=== PATIENT | male | born 1975 | race Two or more races ===

== ENCOUNTER 2025-01-02 17:05 | Inpatient (IN) | payer BC, OTHER ==
[~2025-01-02] VITALS: Ht 185.4 cm; Wt 133.0 kg
--- NOTE | 2025-01-02 17:25 | ED.PDOC ---
HPI Comments 49 y/o M, BIBA with PMHX of HTN presents to the ED for CC of chest pain. EMS states, patient is coming from PCP office where he was being seen for left arm numbness that radiates to his left shoulder. EMS relays, PCP did an EKG which showed stemi; elevation in leads V3 and V4. Patient was given 324 of Aspirin in route to ED an all VSS. Patient denies chest pain, shortness of breath, or N/V/D. No other symptoms or modifying factors at this time. Chief Complaint: Chest Pain Time Seen by MD: 17:00 Reviewed Notes: Nurses Notes, City Distribution Clerk Notes, Medications, Allergies Allergies: Coded Allergies: NO KNOWN ALLERGIES (Unverified , 01/02/25) Information Source: Patient, Emergency Med Personnel Mode of Arrival: EMS Severity: Moderate Timing: Minutes Duration: Since onset Prehospital treatment: 12 Lead EKG Onset: At Rest Cardiac Risk Factors: HTN PE Risk Factors: None History of: None Modifying Factors: Nothing Associated Signs and Symptoms: None Past Medical History PAST MEDICAL HISTORY: HTN Surgical History: Denies all surgeries Family History Family History: Unknown Social History Smoker: Non-Smoker Alcohol: Denies ETOH Use Drugs: Denies Drug Use Lives In: Home Constitutional: denies: chills, diaphoresis, fatigue, fever, malaise, sweats, weakness, others EENTM: denies: blurred vision, double vision, ear bleeding, ear discharge, ear drainage, ear pain, ear ringing, eye pain, eye redness, hearing loss, mouth pain, mouth swelling, nasal discharge, nose bleeding, nose congestion, nose pain, photophobia, tearing, throat pain, throat swelling, voice changes, others Respiratory: denies: cough, hemoptysis, orthopnea, SOB at rest, shortness of breath, SOB with excertion, stridor, wheezing, others Cardiovascular: reports: left arm pain; denies: chest pain, dizzy spells, diaphoresis, Dyspnea on exertion, edema, irregular heart beat, lightheadedness, palpitations, PND, syncope, others Gastrointestinal: denies: abdomen distended, abdominal pain, blood streaked bowels, constipated, diarrhea, dysphagia, difficulty swallowing, hematemesis, melena, nausea, poor appetite, poor fluid intake, rectal bleeding, rectal pain, vomiting, others Genitourinary: denies: burning, dysuria, flank pain, frequency, hematuria, inc ontinence, penile discharge, penile sore, pain, testicle pain, testicle swelling, urgency, others Neurological: denies: dizziness, fainting, headache, left sided numbness, left sided weakness, numbness, paresthesia, pre-existing deficit, right sided numbness, right sided weakness, seizure, speech problems, tingling, tremors, weakness, others Musculoskeletal: denies: back pain, gout, joint pain, joint swelling, muscle pain, muscle stiffness, neck pain, others Integumetry: denies: bruises, change in color, change in hair/nails, dryness, laceration, lesions, lumps, rash, wounds, others Allergic/Immunocompromised: denies: Difficulty Healing, Frequent Infections, Hives, Itching, others Hematologic/Lymphatic: denies: anemia, blood clots, easy bleeding, easy bruising, swollen glands, others Endocrine: denies: excessive hunger, excessive sweating, excessive thirst, excessive urination, flushing, intolerance to cold, intolerance to heat, unexplained weight gain, unexplained weight loss, others Psychiatric: denies: anxiety, bipolar disorder, depression, hopeless, panic disorder, schizophrenia, sleepless, suicidal, others All Other Systems: Reviewed and Negative Physical Exam General Appearance: Moderate Distress HEENT: Normal ENT Inspection, Pharynx Normal, TMs Normal Neck: Full Range of Motion, Non-Tender, Normal, Normal Inspection Respiratory: Chest Non-Tender, Lungs Clear, No Accessory Muscle Use, No Respiratory Distress, Normal Breath Sounds Cardiovascular: No Edema, No JVD, No Murmur, No Gallop, Normal Peripheral Pulses, Regular Rate/Rhythm Breast Exam: Deferred Gastrointestinal: No Organomegaly, Non Tender, No Pulsatile Mass, Normal Bowel Sounds, Soft Genitalia: Deferred Pelvic: Deferred Rectal: Deferred Extremities: No calf tenderness, Normal capillary refill, Normal inspection, Normal range of motion, Non-tender, No pedal edema Musculoskeletal : Apperance: Normal Neurologic: Alert, sap bw architect II-XII nml as Tested, Motor Weakness, Normal Affect, Normal Mood, No Sensory Deficits Cerebellar Function: Normal Reflexes: Normal Skin: Dry, Normal Color, Warm Lymphatic: No Adenopathy EKG EKG : Pulse Rate (adult): 61 [place]: Normal Cardiac Rhythm: NSR Block: LBBB Hypertrophy: LAE Was a procedure done? Was a procedure done?: No CP Differential Dx Differential Diagnosis: Angina, MS, Pulmonary Embolus Differential Diagnosis: CHF Differential Diagnosis: Pericarditis X-Ray, Labs, Meds, VS Vital Signs Date Time Temp Pulse Resp B/P (MAP) Pulse Ox O2 Delivery O2 Flow Rate FiO2 01/02/25 18:27 112/37 01/02/25 18:10 61 01/02/25 17:40 Room Air* 0 21 01/02/25 17:09 66 01/02/25 17:08 98.1 92 18 134/82 (99) 99 Lab Test 01/02/25 17:21 Range/Units White Blood Count 4.1 L 4.4-10.8 10^3/uL Red Blood Count 5.36 4.5-5.90 10^6/uL Hemoglobin 14.9 13.5-17.5 g/dL Hematocrit 46.2 41.0-53.0 % Mean Corpuscular Volume 86.2 80.0-100.0 fL Mean Corpuscular Hemoglobin 27.8 L 28.0-32.0 pg Mean Corpuscular Hemoglobin Concent 32.3 32.0-36.0 g/dL Red Cell Distribution Width 14.7 H 11.8-14.3 % Platelet Count 223 140-450 10^3/uL Mean Platelet Volume 8.4 6.9-10.8 fL Neutrophils (%) (Auto) 42.1 37.0-80.0 % Lymphocytes (%) (Auto) 44.1 10.0-50.0 % Monocytes (%) (Auto) 11.6 0.0-12.0 % Eosinophils (%) (Auto) 1.6 0.0-7.0 % Basophils (%) (Auto) 0.6 0.0-2.0 % Neutrophils # (Auto) 1.7 1.6-8.6 10 ^3/uL Lymphocytes # (Auto) 1.8 0.4-5.4 10 ^3/uL Monocytes # (Auto) 0.5 0-1.3 10 ^3/uL Eosinophils # (Auto) 0.1 0-0.8 10 ^3/uL Basophils # (Auto) 0 0-0.2 10 ^3/uL Nucleated Red Blood Cells 0.2 % Prothrombin Time 11.1 9.3-11.8 sec Prothrombin Time INR 1.05 0.9-1.15 Activated Partial Thromboplast Time 25.5 24.5-34.5 SEC Sodium Level 141 136-145 mmol/L Potassium Level 4.2 3.5-5.1 mmol/L Chloride Level 104 98-107 mmol/L Carbon Dioxide Level 29 20-31 mmol/L Anion Gap 8 5-15 Blood Urea Nitrogen 10 9-23 mg/dL Creatinine 1.31 H 0.700-1.30 mg/dL Glomerular Filtration Rate Calc 67 >90 mL/min BUN/Creatinine Ratio 7.6 L 10.0-20.0 Serum Glucose 92 74-106 mg/dL Calcium Level 10.4 8.7-10.4 mg/dL Magnesium Level 2.1 1.6-2.6 mg/dL Total Bilirubin 0.6 0.2-1.0 mg/dL Aspartate Amino Transferase (AST) 16 13-40 U/L Alanine Aminotransferase (ALT) 32 7-40 U/L Alkaline Phosphatase 63 46-116 U/L Troponin I High Sensitivity 3 L </=54 ng/L B-Type Natriuretic Peptide 9.80 0-100 pg/mL Total Protein 7.2 5.7-8.2 g/dL Albumin 4.8 3.2-4.8 g/dL Current Medications Medications (Trade) Dose Ordered Sig/Tamar Route Start Time Stop Time Status Last Admin Nitroglycerin (Nitrodur 0.2MG/ Hr) 1 patch ONCE ONCE TD 01/02/25 17:30 01/02/25 17:31 DC 01/02/25 18:27 Sodium Chloride 500 ml @ 500 mls/hr Q1H ONCE IV 01/02/25 18:15 01/02/25 19:14 01/02/25 18:27 We spoke with [facility] and they gave us authorization to admit the patient is secondary to unstable for transfer The patient's CBC is within normal limits. We are giving the patient has some normal saline prior to placing nitroglycerin on the chest. IV Hep-Lock was established. We did send the EKG to Dr. Horta. He determined that this is not a STEMI but we are going to start the patient on nitroglycerin. The patient did receive aspirin prior to arrival. The patient was chemistry panel is within normal limits The 1st troponin level is negative The patient will be admitted at this time A cardiology consult has already been placed. Images Reviewed?: Images reviewed and evaluated by me Time of 1ST Reevaluation: 17:30 Reevaluation 1ST: Unchanged Patient Education/Counseling: Diagnosis, Treatment, Prognosis Family Education/Counseling: No Family Present Departure 1 Departure Time of Disposition: 18:46 Impression: Primary Impression: Acute myocardial ischemia Disposition: 09 ADMITTED INPATIENT Admit to: Tele Condition: Fair Critical Care Note Critical Care Time?: Yes (45 min-critical care time only) Stability Stability form required: Yes Unstable for transfer: Telemetry monitoring (Telemetry monitoring required), ED Physician Assesment (Clinical assesment) Heart Score Heart Score: Heart Score Response (Comments) Value History Moderate Suspicious 1 EKG Repolarization Disturb 1 Age 45-64 1 Risk Factors 1 or 2 risk factors 1 Troponin Normal limit 0 Total 4 I personally scribed for CLARISA GUIDO MD ([email or web address]) on 01/02/25 at 17:25. Electronically submitted by Beatriz Pink ([email or web address]). CLARISA GUIDO MD Jan 02, 2025 17:25
[2025-01-02] MEDS ORDERED: NITROGLYCERIN 50MG/250ML 250 ML IV ONE (17:30)
[2025-01-02 17:31] LABS: Basophils # (auto) 0 10 ^3/uL (0-0.2); Basophils % (auto) 0.6 % (0.0-2.0); Eosinophils # (auto) 0.1 10 ^3/uL (0-0.8); Eosinophils % (auto) 1.6 % (0.0-7.0); Hematocrit 46.2 % (41.0-53.0); Hemoglobin 14.9 g/dL (13.5-17.5); Lymphocytes # (auto) 1.8 10 ^3/uL (0.4-5.4); Lymphocytes % (auto) 44.1 % (10.0-50.0); Mean Corpuscular Hemoglobin 27.8 pg (28.0-32.0); Mean Corpuscular Hgb Conc. 32.3 g/dL (32.0-36.0); Mean Corpuscular Volume 86.2 fL (80.0-100.0); Monocytes # (auto) 0.5 10 ^3/uL (0-1.3); Monocytes % (auto) 11.6 % (0.0-12.0); Neutrophils # (auto) 1.7 10 ^3/uL (1.6-8.6); Neutrophils % (auto) 42.1 % (37.0-80.0); Nucleated Red Blood Cells % 0.2 %; Platelet Count (auto) 223 10^3/uL (140-450); Red Blood Cells 5.36 10^6/uL (4.5-5.90); Red Cell Distribution Width 14.7 % (11.8-14.3); White Blood Cell 4.1 10^3/uL (4.4-10.8)
[2025-01-02 17:45] LABS: Alanine Aminotransferase 32 U/L (7-40); Albumin 4.8 g/dL (3.2-4.8); Alkaline Phosphatase 63 U/L (46-116); Anion Gap 8 (5-15); Aspartate Aminotransferase 16 U/L (13-40); BUN/Creatinine Ratio 7.6 (10.0-20.0); Blood Urea Nitrogen 10 mg/dL (9-23); Carbon Dioxide 29 mmol/L (20-31); Chloride 104 mmol/L (98-107); Glucose 92 mg/dL (74-106); Magnesium 2.1 mg/dL (1.6-2.6); Potassium 4.2 mmol/L (3.5-5.1); Sodium 141 mmol/L (136-145); Total Protein 7.2 g/dL (5.7-8.2)
[2025-01-02 17:46] LABS: Bilirubin, Total 0.6 mg/dL (0.2-1.0); INR 1.05 (0.9-1.15); Partial Thromboplastin Time 25.5 SEC (24.5-34.5); Prothrombin Time 11.1 sec (9.3-11.8)
--- NOTE | 2025-01-02 18:12 | ECG ---
[facility] Test Date: 2025-01-02 Test Time: 18:10:47 Pat Name: ELY HARRIS Department: er Room: Gender: M Condenser Operator: jessica : 1975 Requested By: CLARISA GUIDO Order Number: [id number] Reading MD: Measurements Intervals [place] Rate: 61 P: 38 ND: 184 QRS: -76 QRSD: 147 T: 69 QT: 459 QTc: 463 Interpretive Statements Sinus rhythm Probable left atrial enlargement Left bundle branch block Please click the below link to view image of tracing.
[2025-01-02 18:16] LABS: Calcium 10.4 mg/dL (8.7-10.4)
[2025-01-02] MEDS: SODIUM CHLORIDE 0.9% 500 ML IV ONE (18:27)
[2025-01-02] MEDS: NITROGLYCERIN 0.2MG/HR TOPICAL PATCH TD ONE (18:27)
--- NOTE | 2025-01-02 18:41 | DVH ---
CHEST RADIOGRAPH Indication: CP Technique: Single frontal view of the chest was obtained COMPARISON: None FINDINGS: Lines and Tubes: None Lungs: Clear Pleura: No effusion. No pneumothorax. Cardiomediastinal contours: Unremarkable Bones: Unremarkable IMPRESSION: 1. No acute disease.
[2025-01-02] MEDS ORDERED: NITROGLYCERIN 0.4 MG SL TAB SL PRN (19:15)
[2025-01-02] MEDS ORDERED: ACETAMINOPHEN 325 MG TAB PO PRN (19:15)
[2025-01-02 19:34] VITALS: PULSE 59; RESP 18; O2SAT 95
[2025-01-02] MEDS: TOPIRAMATE 25 MG TAB PO SCH (22:26)
[2025-01-02] MEDS: ATORVASTATIN 20 MG TAB PO SCH (22:27)
[2025-01-02] MEDS: ONDANSETRON HCL 4 MG/2 ML VIAL IV PRN (22:29)
[2025-01-02] MEDS: MORPHINE SULFATE INJ 2 MG/ml SYRG IV PRN (22:29)
--- NOTE | 2025-01-02 22:59 | DVHHP2 ---
History of Present Illness Reason for Visit: Chest pain History of Present Illness 49-year-old male presents for evaluation of chest pain. Patient reports a three day history of left-sided sharp chest pain that was radiating to his left neck. He states developing left arm numbness as well. He was seen by his primary care provider who advised him to present to the emergency department for further evaluation of symptoms. Currently denies any nausea or vomiting. No chest pain. No other acute complaints reported at this time. Past Medical History Hypertension and obstructive sleep apnea Past Surgical History Denies Family History Noncontributory Smoke: No ALCOHOL: none Drugs: None Lives: with Family Review of Systems Review of Systems Review of systems are currently negative otherwise addressed in HPI. Allergies: Coded Allergies: NO KNOWN ALLERGIES (Unverified , 01/02/25) Medications Current Medications Medications Dose Ordered Sig/Tamar Route Start Time Stop Time Status Last Admin Dose Admin Aspirin 81 mg DAILY PO 01/03/25 10:00 Atorvastatin Calcium 20 mg HS PO 01/02/25 22:00 01/02/25 22:27 20 MG Telmisartan 80 mg HS PO 01/03/25 22:00 Topiramate 25 mg BID PO 01/02/25 22:00 01/02/25 22:26 25 MG Ondansetron HCl 4 mg Q4HP PRN IV 01/02/25 19:15 01/02/25 22:29 4 MG Acetaminophen 650 mg Q6HP PRN PO 01/02/25 19:15 Nitroglycerin 0.4 mg Q5MINP PRN SL 01/02/25 19:15 Morphine Sulfate 2 mg Q30M PRN IV 01/02/25 19:15 01/02/25 22:29 2 MG Exam Vital Signs Vital Signs Date Time Temp Pulse Resp B/P (MAP) Pulse Ox O2 Delivery O2 Flow Rate FiO2 01/02/25 22:29 64 11 126/83 01/02/25 19:34 95 Room Air* 0 21 01/02/25 19:34 97.6 97.6 Exam Gen: 49-year-old male in mild distress, obese Skin: Warm, dry, normal color and texture, no rash. HEENT: Normocephalic atraumatic, mucous membranes moist and pink. Neck: Cervical and supraclavicular nodes normal without enlargement, trachea is midline, thyroid gland is normal without masses. Pulmonary: Clear to auscultation and percussion bilaterally. Cardiac: Regular rate and rhythm. No murmur Abdomen: Soft, nontender, nondistended, bowel sounds present all 4 quadrants, no guarding, no rigidity, no organomegaly. Extremities: No cyanosis, clubbing, no edema Neuro: Cranial nerves II through XII grossly intact, normal affect and speech, no focal motor deficits. Labs/Xrays ORDERING PHYSICIAN: CLARISA GUIDO MD PROCEDURE(s): CXRP - CHEST PORTABLE REASON: CP ORDER NUMBER(s): [id number], ACCESSION NUMBER(s): [id number] CHEST RADIOGRAPH Indication: CP Technique: Single frontal view of the chest was obtained COMPARISON: None FINDINGS: Lines and Tubes: None Lungs: Clear Pleura: No effusion. No pneumothorax. Cardiomediastinal contours: Unremarkable Bones: Unremarkable IMPRESSION: 1. No acute disease. Labs Test 01/02/25 20:55 01/02/25 17:21 Range/Units Troponin I High Sensitivity 4 </=54 ng/L White Blood Count 4.1 L 4.4-10.8 10^3/uL Red Blood Count 5.36 4.5-5.90 10^6/uL Hemoglobin 14.9 13.5-17.5 g/dL Hematocrit 46.2 41.0-53.0 % Mean Corpuscular Volume 86.2 80.0-100.0 fL Mean Corpuscular Hemoglobin 27.8 L 28.0-32.0 pg Mean Corpuscular Hemoglobin Concent 32.3 32.0-36.0 g/dL Red Cell Distribution Width 14.7 H 11.8-14.3 % Platelet Count 223 140-450 10^3/uL Mean Platelet Volume 8.4 6.9-10.8 fL Neutrophils (%) (Auto) 42.1 37.0-80.0 % Lymphocytes (%) (Auto) 44.1 10.0-50.0 % Monocytes (%) (Auto) 11.6 0.0-12.0 % Eosinophils (%) (Auto) 1.6 0.0-7.0 % Basophils (%) (Auto) 0.6 0.0-2.0 % Neutrophils # (Auto) 1.7 1.6-8.6 10 ^3/uL Lymphocytes # (Auto) 1.8 0.4-5.4 10 ^3/uL Monocytes # (Auto) 0.5 0-1.3 10 ^3/uL Eosinophils # (Auto) 0.1 0-0.8 10 ^3/uL Basophils # (Auto) 0 0-0.2 10 ^3/uL Nucleated Red Blood Cells 0.2 % Prothrombin Time 11.1 9.3-11.8 sec Prothrombin Time INR 1.05 0.9-1.15 Activated Partial Thromboplast Time 25.5 24.5-34.5 SEC Sodium Level 141 136-145 mmol/L Potassium Level 4.2 3.5-5.1 mmol/L Chloride Level 104 98-107 mmol/L Carbon Dioxide Level 29 20-31 mmol/L Anion Gap 8 5-15 Blood Urea Nitrogen 10 9-23 mg/dL Creatinine 1.31 H 0.700-1.30 mg/dL Glomerular Filtration Rate Calc 67 >90 mL/min BUN/Creatinine Ratio 7.6 L 10.0-20.0 Serum Glucose 92 74-106 mg/dL Calcium Level 10.4 8.7-10.4 mg/dL Magnesium Level 2.1 1.6-2.6 mg/dL Total Bilirubin 0.6 0.2-1.0 mg/dL Aspartate Amino Transferase (AST) 16 13-40 U/L Alanine Aminotransferase (ALT) 32 7-40 U/L Alkaline Phosphatase 63 46-116 U/L B-Type Natriuretic Peptide 9.80 0-100 pg/mL Total Protein 7.2 5.7-8.2 g/dL Albumin 4.8 3.2-4.8 g/dL Assessment/Plan Assessment/Plan Assessment Chest pain rule out ACS Hypertension Acute kidney injury Plan Admit the patient to telemetry to the hospitalist ACS protocol Cardiology consultation Resume home medications Continue treatment per orders. Plan discussed with: Patient My Orders Orders - CONRAD CLARK Procedure Category Date Status Time Aspirin Tablet PHA 01/03/25 In Process 10:00 Atorvastatin (Lipitor) PHA 01/02/25 In Process 22:00 Telmisartan (Micardis) PHA 01/03/25 In Process 22:00 Topiramate (Topamax) PHA 01/02/25 In Process 22:00 Basic Metabolic Panel LAB 01/03/25 Verified 04:00 Admit ADMIT 01/02/25 Transmitted 19:13 Ondansetron Hcl PHA 01/02/25 In Process (Zofran) 19:15 Cardiac DIET 01/03/25 Transmitted Diet-2gna,Lofat,Lochol Breakfast Echo 2d Mode Cardiac US 01/02/25 Logged DOP 19:13 Condition: Fair ALEXANDREA 01/02/25 In Process 19:13 Acetaminophen Tablet PHA 01/02/25 In Process (Tylenol Tablet) 19:15 Bedrest With Bathroom ALEXANDREA 01/02/25 In Process Privileg 19:13 Nitroglycerin PHA 01/02/25 In Process Sublingual (Ntrostat 19:15 Morphine Sulfate PHA 01/02/25 In Process Injection 19:15 Stat Ekg For Chest ALEXANDREA 01/02/25 In Process Pain 19:13 Notify Md Of Changes ALEXANDREA 01/02/25 In Process From Base 19:13 Supervisor Rose [employer]ading For [facility] 01/02/25 In Process 24 Hours 19:13 Emergency Dysrhythmia [facility] 01/02/25 In Process Protocol 19:13 Rhythm Strips Once ALEXANDREA 01/02/25 In Process Every Shift 19:13 Oxygen By Nasal RT 01/02/25 Transmitted Cannula 19:13 Lipid Panel LAB 01/02/25 Transmitted 22:53 Thyroid Stimulating LAB 01/02/25 Transmitted Hormone 22:53 Date of Service: Jan 02, 2025 Billing Provider: CONRAD CLARK Common Visit Codes: [id number] INP/OBS CARE (HIGH) CONRAD CLARK Jan 02, 2025 22:59
[2025-01-02 23:45] LABS: Cholesterol 199 mg/dL (< 200)
[2025-01-02 23:56] LABS: HDL Cholesterol 39 mg/dL (40-59); LDL Cholesterol 123 mg/dL (< 100); Triglycerides 216 mg/dL (< 150)
[2025-01-03] VITALS (12 sets, daily range): BP systolic 100–125; BP diastolic 54–83; PULSE 49–73; RESP 14–19; TEMP 97–97.7; O2SAT 96–99
[2025-01-03 06:44] LABS: Anion Gap 7 (5-15); Carbon Dioxide 30 mmol/L (20-31); Chloride 103 mmol/L (98-107); Potassium 4.3 mmol/L (3.5-5.1); Sodium 140 mmol/L (136-145)
[2025-01-03 06:45] LABS: Calcium 9.8 mg/dL (8.7-10.4)
[2025-01-03 06:50] LABS: BUN/Creatinine Ratio 8.3 (10.0-20.0); Blood Urea Nitrogen 11 mg/dL (9-23); Glucose 96 mg/dL (74-106)
[2025-01-03] MEDS: HYDROcodone-ACET 5/325MG TAB PO PRN (08:26)
--- NOTE | 2025-01-03 09:57 | ECG ---
[facility] Test Date: 2025-01-02 Test Time: 19:56:33 Pat Name: ELY HARRIS Department: ED Room: [address] [place] [address] Gender: M Noc Engineer: RAMILA : 1975 Requested By: CLARISA GUIDO Order Number: [id number] Reading MD: Measurements Intervals [place] Rate: 59 P: 43 FL: 179 QRS: -69 QRSD: 144 T: 78 QT: 469 QTc: 465 Interpretive Statements Sinus rhythm Probable left atrial enlargement Left bundle branch block Please click the below link to view image of tracing.
[2025-01-03] MEDS: ASPirin 81 mg TAB PO SCH (10:21)
--- NOTE | 2025-01-03 11:19 | DVHINCON2 ---
Date Seen: Jan 03, 2025 Referring Physician DORIS Ochoa Reason for Consultation Chest pain History of Present Illness This is a 49-year-old man who presented to the emergency room with a chief complaint of chest pain x 2 days. Describes his chest pain as left-sided, radiating to his left arm/neck area/shoulder blades, non provoked, intermittent, pressure-like, and associated with NAVARRO and some dizziness. Denies palpitations, diaphoresis, or syncopal events. He underwent multiple 12 lead electrocardiogram revealing a sinus rhythm with an associated left bundle branch block and ST segment depression to lead aVL. Serial troponin levels are negative. The patient denies history of LBBB in the past. States he last saw a charge master specialist given hypertension in 2017. At that time he underwent a transt horacic echocardiogram, Holter monitor, and treadmill stress test all with unremarkable findings. Significant medical history includes hypertension, dyslipidemia, prediabetes, and obesity. Of note, reports a significant family history for cardiac disease including father undergoing a triple-vessel CABG in his 70s with PCIs and stent placement afterwards, and mother with a history of CVA in her 60s. Past Medical History Past medical history reviewed. No other significant than mentioned above. Past Surgical History Vasectomy Family History Family history reviewed. Significant for father undergoing a triple-vessel CABG in his 70s with PCIs and stent placement afterwards, and mother with a history of CVA in her 60s. Social History Denies the use of illicit drugs. Admits to vaping for 15 years. Admits to occasional alcohol use. Allergies: Coded Allergies: NO KNOWN ALLERGIES (Unverified , 01/02/25) Home Meds Home medications reviewed. Current Medications Current Medications Medications (Trade) Dose Ordered Sig/Tamar Route PRN Reason Start Time Stop Time Status Last Admin Aspirin 81 mg DAILY PO 01/03/25 10:00 01/03/25 10:21 Atorvastatin Calcium (Lipitor) 20 mg HS PO 01/02/25 22:00 01/02/25 22:27 Telmisartan (Micardis) 80 mg HS PO 01/03/25 22:00 Topiramate (Topamax) 25 mg BID PO 01/02/25 22:00 01/03/25 10:21 Ondansetron HCl (Zofran) 4 mg Q4HP PRN IV NAUSEA / VOMITING 01/02/25 19:15 01/02/25 22:29 Acetaminophen (Tylenol Tablet) 650 mg Q6HP PRN PO PAIN SCALE 1-3 OR TEMP>100.4 01/02/25 19:15 Nitroglycerin (Ntrostat Sublingual) 0.4 mg Q5MINP PRN SL FOR CHEST PAIN 01/02/25 19:15 Morphine Sulfate 2 mg Q30M PRN IV FOR CHEST PAIN 01/02/25 19:15 01/02/25 22:29 Acetaminophen/ Hydrocodone Bitart ([place] 5/325MG Tab) 1 tab Q6HPRN PRN PO MODERATE PAIN (4-6 PAIN SCALE) 01/03/25 00:00 01/03/25 08:26 Review of Systems Constitutional: No symptom reported Ears, Nose, & Throat: No symptom reported Eyes: No symptom reported Neurological: Dizziness Pulmonary/Respiratory: No symptom reported Cardiovascular: Chest pain, NAVARRO Gastrointestinal: No symptom reported Genitourinary: No symptom reported Musculoskeletal: No symptom reported Skin: No symptom reported Psychiatric: No symptom reported Endocrine: No symptom reported Hemotologic/Lymphatic: No symptom reported Vital Signs Vital Signs Date Time Temp Pulse Resp B/P (MAP) Pulse Ox O2 Delivery O2 Flow Rate FiO2 01/03/25 08:12 60 18 115/82 (93) 96 01/03/25 07:45 Room Air* 0 21 01/02/25 19:34 97.6 97.6 Physical Exam General Appearance: Cooperative. Well developed. Obese. In no acute distress Head Exam: Normal inspection Neck Exam: Normal inspection. Non-tender. Normal alignment Pulmonary/Respiratory: Chest non-tender. Clear bilateral breath sounds Cardiovascular/Chest: Regular rate and rhythm. S1, S2. SR with LBBB and ST- segment depression to lead aVL. No murmurs. No JVD. Peripheral Pulses: 2+ Radial (R). 2+ Radial (L). 2+ Pedal (R). 2+ Pedal (L) Abdominal Exam: Normal bowel sounds. Soft. Nontender. No hepatospenomegaly. No masses Ankle Exam: Negative ankle edema Lower extremities: Negative lower extremity edema Neuro/Mental Status: A&O x4. Coherent Thoughts/Psych: Normal thought pattern. Appropriate mood and affect. Good judgement and insight Appearance: In no acute distress Skin Exam: Normal inspection. Normal color. Warm. Dry Labs/Diagnostic Data Labs Test 01/03/25 05:45 01/02/25 20:55 01/02/25 17:21 Range/Units Sodium Level 140 136-145 mmol/L Potassium Level 4.3 3.5-5.1 mmol/L Chloride Level 103 98-107 mmol/L Carbon Dioxide Level 30 20-31 mmol/L Anion Gap 7 5-15 Blood Urea Nitrogen 11 9-23 mg/dL Creatinine 1.33 H 0.700-1.30 mg/dL Glomerular Filtration Rate Calc 66 >90 mL/min BUN/Creatinine Ratio 8.3 L 10.0-20.0 Serum Glucose 96 74-106 mg/dL Calcium Level 9.8 8.7-10.4 mg/dL Troponin I High Sensitivity 4 </=54 ng/L Triglycerides Level 216 H < 150 mg/dL Cholesterol Level 199 < 200 mg/dL LDL Cholesterol 123 H < 100 mg/dL HDL Cholesterol 39 L 40-59 mg/dL Thyroid Stimulating Hormone (TSH) 2.16 0.55-4.78 uIU/mL White Blood Count 4.1 L 4.4-10.8 10^3/uL Red Blood Count 5.36 4.5-5.90 10^6/uL Hemoglobin 14.9 13.5-17.5 g/dL Hematocrit 46.2 41.0-53.0 % Mean Corpuscular Volume 86.2 80.0-100.0 fL Mean Corpuscular Hemoglobin 27.8 L 28.0-32.0 pg Mean Corpuscular Hemoglobin Concent 32.3 32.0-36.0 g/dL Red Cell Distribution Width 14.7 H 11.8-14.3 % Platelet Count 223 140-450 10^3/uL Mean Platelet Volume 8.4 6.9-10.8 fL Neutrophils (%) (Auto) 42.1 37.0-80.0 % Lymphocytes (%) (Auto) 44.1 10.0-50.0 % Monocytes (%) (Auto) 11.6 0.0-12.0 % Eosinophils (%) (Auto) 1.6 0.0-7.0 % Basophils (%) (Auto) 0.6 0.0-2.0 % Neutrophils # (Auto) 1.7 1.6-8.6 10 ^3/uL Lymphocytes # (Auto) 1.8 0.4-5.4 10 ^3/uL Monocytes # (Auto) 0.5 0-1.3 10 ^3/uL Eosinophils # (Auto) 0.1 0-0.8 10 ^3/uL Basophils # (Auto) 0 0-0.2 10 ^3/uL Nucleated Red Blood Cells 0.2 % Prothrombin Time 11.1 9.3-11.8 sec Prothrombin Time INR 1.05 0.9-1.15 Activated Partial Thromboplast Time 25.5 24.5-34.5 SEC Magnesium Level 2.1 1.6-2.6 mg/dL Total Bilirubin 0.6 0.2-1.0 mg/dL Aspartate Amino Transferase (AST) 16 13-40 U/L Alanine Aminotransferase (ALT) 32 7-40 U/L Alkaline Phosphatase 63 46-116 U/L B-Type Natriuretic Peptide 9.80 0-100 pg/mL Total Protein 7.2 5.7-8.2 g/dL Albumin 4.8 3.2-4.8 g/dL Assessment Unstable angina rule out coronary artery disease Newly diagnosed left bundle branch block Rule out right lower extremity DVT Hypertension Dyslipidemia Prediabetes Likely CKD stage II Nicotine Obesity Plan/Recommendation (Dr. Horta) Scheduled for urgent coronary angiogram with cardiac catheterization at first available. All risks and benefits of the procedure were discussed with the patient who agrees to proceed with intervention. All questions answered. Obtain a transthoracic echocardiogram to rule out structural heart disease as well as a right lower extremity DVT US. Continue single-antiplatelet therapy and lipid lowering agent. Initiate nicotine patch. Rest of plan per clinical course. Thank you for allowing us to participate in this patient's care. Please call if you have any questions or concerns. This medical document was created using an electronic medical record system with voice recognition software and computerized dictation system. Although this document has been carefully reviewed, there might still be some phonetic and typographical errors. Occasional wrong-word or ``sound-alike substitutions may have occurred due to the inherent limitations of voice recognition software. These areas are purely typographical due to imperfections of the software programs and do not reflect any compromise in the patient's medical care. Please read the chart carefully and recognize, using context, where these substitutions have occurred. Plan discussed with: Patient NYHA Physical activity limitations: NA Date of Service: Jan 03, 2025 Billing Provider: CRYSTAL WAYNE Cardiology Common Codes: [id number] INP/OBS CARE (High) CRYSTAL WAYNE Jan 03, 2025 11:19
[2025-01-03] MEDS ORDERED: NICOTINE 14 MG/24HR TOPICAL PATCH TD ONE (11:30)
[2025-01-03] MEDS: ANGIOMAX 250 MG VIAL IV ONE (12:07)
[2025-01-03] MEDS: HEPARIN SODIUM (PORCINE) 5000 UNITS/ML 1ML VIAL ONE (12:07)
[2025-01-03] MEDS: VERAPAMIL 2.5MG/ML INJ 2ML VIAL IV ONE (12:08)
[2025-01-03] MEDS: SODIUM CHL 0.9% 50 ML ONE (12:08)
[2025-01-03] MEDS: MIDAZOLAM HCL 2MG/2ML 2ml VIAL (1mg/ml) ONE (12:08)
[2025-01-03] MEDS: fentaNYL CITRATE 100 MCG/2 ML VL ONE (12:08)
[2025-01-03] MEDS: LIDOCAINE 2%HCL (LOCAL ANESTH.) INJ 20ML MDV ONE (12:09)
[2025-01-03] MEDS: IODIXANOL 320MG/ML 100ML BTL IV ONE (12:22)
--- NOTE | 2025-01-03 13:46 | DVH ---
Right lower extremity venous duplex Clinical History: Unilateral edema Comparison: None Findings: Duplex Doppler evaluation of the deep venous system of the right lower extremity from the common femo ral vein to the popliteal vein including color Doppler and spectral/pulsed waveform analysis was perf ormed. The common femoral vein demonstrates appropriate compressibility and waveform variability. There is compressibility/patency of the great saphenous vein at the proximal thigh. The femoral vein demonstrates appropriate compressibility and waveform variability. The deep femoral vein demonstrates appropriate compressibility and waveform variability. The popliteal vein demonstrates appropriate compressibility and waveform variability. There is normal compressibility at the tibioperoneal trunk. Impression: No right femoropopliteal venous thrombosis. If clinical concern/symptoms persist or worsen, short-interval follow-up study is suggested.
[2025-01-03] MEDS ORDERED: FUROSEMIDE 40 MG/4 ML VIAL IV ONE (14:00)
--- NOTE | 2025-01-03 14:03 | DVHPN2 ---
Assessment/Plan Assessment/Plan Progress note 49 yo M with HTN and heart failure? admitted for chest pain. Sharp left sided radiating to shoulders. Started while driving, non exersional. EKG showed LBBB, not sure if new. Currently not having chest pain. Uses vape, denies drug use, social alcohol use. Compliance with meds Physical exam AOx4 Not able to assess JVD clear breath sounds s1 s2 rrr no murmur Abdomen soft nontender LE edema R>L labs ekg imaging reviewed Chest pain with new? LBBB HFpEF? LE swelling R>L chronic diastolic heart failure Tobacco use Obesity Hypertension ALLA? vs CKD Cardio consult, plan for cath Echo Lasix to maintain -500 to 1L Resume home meds NRT Trend cr LE doppler strict i o daily weights Diet cardiac DVT ppx lovenox Plan discussed with: Patient My Orders Orders - VALERIA CANTU MD Procedure Category Date Status Time Npo (Nothing By DIET 01/03/25 Transmitted Mouth) Diet Lunch Date of Service: Jan 03, 2025 Billing Provider: VALERIA CANTU MD Common Visit Codes: [id number] INP/OBS CARE(HIGH) VALERIA CANTU MD Jan 03, 2025 14:03
--- NOTE | 2025-01-03 14:09 | DVHOP2 ---
Operative Report - 2 Report Details Date: 01/03/25 Preop Diagnosis: CORONARY ARTERY DISEASE. Postop Diagnosis: Cardiomyopathy. Left main stenosis Surgeon: India Horta MD Anesthesiologist: Conscious sedation Anesthesia: Mac, Local (My personally ordered Versed and fentanyl for patient and monitor patient throughout the entirety procedure) Consent: The patient was informed of the risks and benefits of the procedure. These include but are not limited to complications of anesthesia, postoperative infection, incomplete relief of symptoms, recurrence of symptoms, damage to bloo d vessels, nerves and tendons, deep venous thrombosis, pulmonary embolism and possible need for repeat surgery in the future. Complications: No complications Estimated Blood Loss: 5 cc Findings: Noncritical left main disease Indications for Surgery: Chest pain. We will left bundle-branch block. Name of Procedure Performed Left heart catheterization bilateral cine coronary angiography. Left ventriculography. Intravascular ultrasound evaluation of the left main coronary artery. Procedure Details Procedure Details: Prior local anesthesia with 2% lidocaine to the right wrist and full informed consent obtained the patient was prepped and draped usual fashion followed by placement of a six Latvian sheath into the right radial artery through which a Ja cky catheter was used for ventriculography and cannulation of both right and coronary ostia. Patient also had intravascular ultrasound evaluation a five EBU guide of the left stenosis. Hemodynamics: Aortic blood pressure was 130/70. End-diastolic pressure was 15. There was no gradient across the aortic valve on pullback. Coronary anatomy the RCA is a large vessel it is normal in its proximal mid and distal segments. PDA and posterolateral branches are normal. Left main is a large vessel it has an ostial 50-60% stenosis. The mid and distal segments were large and free of significant disease. Left anterior descending is a large vessel is normal in its proximal mid and distal segment. Diagonals and septals are normal. There was an intermediate artery which is also normal. Medium to large in size. The is a circumflex which is nondominant. Gives off two marginal branches that are normal. Ventriculography in the LING projection shows an EF of approximately 40% with global hypokinesis and enlarged left ventricle. Intravascular ultrasound evaluation was performed with left main. Angiomax was instituted and a Specter wire was placed across the area of stenosis while using a three five EBU guide. The intravascular ultrasound from [employer] was used. We did a slow run through the LAD and entirety of the left main. The left main measured approximately 10 mm in diameter. Mild plaquing noted. The ostial segment was stenotic and a circumferential MLD was obtained. This was measured at 8.8 millimeters squared. This is consistent with no critical disease. Impression noncritical stenosis of the left main. Mild cardiomyopathy. No significant coronary artery disease otherwise noted. Chest left ventricular ejection fraction with elevated left ventricular end-diastolic pressures with a mild degree. . Recommendations: Medical therapy is warranted continue risk factor modificat ion Condition Good Disposition Still a Patient Date of Service: Jan 03, 2025 Billing Provider: INDIA HORTA Sr., MD Cardiology Common Codes: [id number] INP/OBS CARE (High) Cardiology Procedure Codes: 89709-NUG NONCORN ART BYPASS GTF (Intravascular ultrasound evaluation of the ostial left main.), 99954-Y/L HEART CATH W/BYPASS GFT INDIA HORTA Sr., MD Jan 03, 2025 14:09
[2025-01-03] MEDS ORDERED: ATOR20TA50 PO (17:18)
[2025-01-03] MEDS ORDERED: TELM1TAB37 PO (17:18)
[2025-01-03] MEDS ORDERED: ALLO100T PO (17:18)
[2025-01-03] MEDS: ATORVASTATIN 20 MG TAB PO SCH (21:23)
--- NOTE | 2025-01-03 21:45 | DVHSR ---
APPROVED REPORT EXAM: Two-dimensional and M-mode echocardiogram with Doppler and color Doppler. Blood Pressure: 108/65 mmHg INDICATION Chest Pain RISK FACTORS Obesity: Height: 6'1, Weight: 286 DIMENSIONS LVDd4.4 (3.8-5.7cm)LA (2D)4.6 (1.9-4.0cm)Aortic Root3.9 (2.0-3.7cm) LVDs3.2 (2.5-4.0cm)LA (MM) (1.9-4.0cm)Aortic Cusp Exc2.2 (1.5-2.0cm) EF (%) 54.0 (55-70%)Rt. Atrium4.1 (1.9-4.0cm)Asc. Aorta3.2 cm IVSd1.0 (0.7-1.1cm)RV (D)4.8 (1.8-2.4cm) PWd1.1 (0.7-1.1cm) Mitral Valve MitralMitral Stenosis E wave0.84m/sMV Mean GR.mmHg A wave0.78m/sMV Peak GR.mmHg E/A ratio1.12D MVAcm2 DECEL [id number] 1/2 Timems Aortic Valve Aortic ValveAortic Stenosis V10.98m/Dorys Mean GR.4mmHg V21.28m/Dorys Peak GR.7mmHg LVOT Diameter2.5 (1.8-2.4cm)Doppler AVA3.76cm2 Pulmonic Valve V20.97m/s Tricuspid Valve TR Velocity2.30m/s [id number] Conclusion SR Enlarged RV, LV, aortic root enlargement. Valves enlargement, normal valves EF at 45% with normal RV function. Mild global hypokinesis. Mild TR No masses or vegetations. No PE, masses or vegetations.
[2025-01-03] MEDS ORDERED: TELMISARTAN 20 MG TAB PO SCH (22:00)
[2025-01-03] MEDS ORDERED: ATORVASTATIN 20 MG TAB PO SCH (22:00)
[2025-01-04 01:00] VITALS: BP 108/48; PULSE 61; RESP 19; TEMP 97.9; O2SAT 96
[2025-01-04 05:00] VITALS: BP 121/70; PULSE 62; RESP 18; TEMP 98.1; O2SAT 98
[2025-01-04 06:57] LABS: Basophils # (auto) 0 10 ^3/uL (0-0.2); Basophils % (auto) 0.5 % (0.0-2.0); Eosinophils # (auto) 0.1 10 ^3/uL (0-0.8); Eosinophils % (auto) 1.7 % (0.0-7.0); Hematocrit 44.7 % (41.0-53.0); Hemoglobin 14.8 g/dL (13.5-17.5); Lymphocytes # (auto) 1.5 10 ^3/uL (0.4-5.4); Lymphocytes % (auto) 43.4 % (10.0-50.0); Mean Corpuscular Hemoglobin 28.6 pg (28.0-32.0); Mean Corpuscular Hgb Conc. 33.2 g/dL (32.0-36.0); Mean Corpuscular Volume 86.2 fL (80.0-100.0); Monocytes # (auto) 0.4 10 ^3/uL (0-1.3); Monocytes % (auto) 10.7 % (0.0-12.0); Neutrophils # (auto) 1.5 10 ^3/uL (1.6-8.6); Neutrophils % (auto) 43.7 % (37.0-80.0); Nucleated Red Blood Cells % 0.4 %; Platelet Count (auto) 219 10^3/uL (140-450); Red Blood Cells 5.18 10^6/uL (4.5-5.90); Red Cell Distribution Width 14.9 % (11.8-14.3); White Blood Cell 3.5 10^3/uL (4.4-10.8)
[2025-01-04 07:02] LABS: Anion Gap 8 (5-15); Carbon Dioxide 28 mmol/L (20-31); Chloride 104 mmol/L (98-107); Potassium 4.4 mmol/L (3.5-5.1); Sodium 140 mmol/L (136-145)
[2025-01-04 07:04] LABS: Calcium 10.4 mg/dL (8.7-10.4)
[2025-01-04 07:09] LABS: BUN/Creatinine Ratio 8.1 (10.0-20.0); Blood Urea Nitrogen 10 mg/dL (9-23); Glucose 88 mg/dL (74-106)
[2025-01-04 08:00] VITALS: PULSE 64
[2025-01-04 09:00] VITALS: BP 119/82; PULSE 67; RESP 18; TEMP 98.3; O2SAT 97
[2025-01-04] MEDS: ENOXAPARIN SOD 40 MG/0.4 ML SYRINGE SC SCH (09:11)
[2025-01-04] MEDS: FUROSEMIDE 20 MG TAB PO SCH (09:11)
[2025-01-04] MEDS: ALLOPURINOL 100 MG TAB PO SCH (09:12)
[2025-01-04] MEDS: LISINOPRIL 20 MG TAB PO SCH (09:12)
[2025-01-04] MEDS: NICOTINE 14 MG/24HR TOPICAL PATCH TD SCH (09:17)
[2025-01-04] MEDS ORDERED: ATOR40TA52 PO (12:09)
[2025-01-04] MEDS ORDERED: NITR0.4S29 SL (12:09)
[2025-01-04] MEDS ORDERED: ASPI-325 PO (12:09)
[2025-01-04] MEDS ORDERED: NICO7DIS19 TD (12:09)
[2025-01-04] MEDS ORDERED: EMPA1TAB PO (12:09)
--- NOTE | 2025-01-04 12:17 | DVHDS2 ---
Discharge Summary Date of Admission Jan 02, 2025 at 19:13 Date of Discharge: Jan 04, 2025 Labs/Diagnostic Data: Laboratory Results Test 01/04/25 05:42 01/02/25 20:55 01/02/25 17:21 White Blood Count 3.5 10^3/uL (4.4-10.8) Red Blood Count 5.18 10^6/uL (4.5-5.90) Hemoglobin 14.8 g/dL (13.5-17.5) Hematocrit 44.7 % (41.0-53.0) Mean Corpuscular Volume 86.2 fL (80.0-100.0) Mean Corpuscular Hemoglobin 28.6 pg (28.0-32.0) Mean Corpuscular Hemoglobin Concent 33.2 g/dL (32.0-36.0) Red Cell Distribution Width 14.9 % (11.8-14.3) Platelet Count 219 10^3/uL (140-450) Mean Platelet Volume 8.7 fL (6.9-10.8) Neutrophils (%) (Auto) 43.7 % (37.0-80.0) Lymphocytes (%) (Auto) 43.4 % (10.0-50.0) Monocytes (%) (Auto) 10.7 % (0.0-12.0) Eosinophils (%) (Auto) 1.7 % (0.0-7.0) Basophils (%) (Auto) 0.5 % (0.0-2.0) Neutrophils # (Auto) 1.5 10 ^3/uL (1.6-8.6) Lymphocytes # (Auto) 1.5 10 ^3/uL (0.4-5.4) Monocytes # (Auto) 0.4 10 ^3/uL (0-1.3) Eosinophils # (Auto) 0.1 10 ^3/uL (0-0.8) Basophils # (Auto) 0 10 ^3/uL (0-0.2) Nucleated Red Blood Cells 0.4 % Sodium Level 140 mmol/L (136-145) Potassium Level 4.4 mmol/L (3.5-5.1) Chloride Level 104 mmol/L (98-107) Carbon Dioxide Level 28 mmol/L (20-31) Anion Gap 8 (5-15) Blood Urea Nitrogen 10 mg/dL (9-23) Creatinine 1.23 mg/dL (0.700-1.30) Glomerular Filtration Rate Calc 72 mL/min (>90) BUN/Creatinine Ratio 8.1 (10.0-20.0) Serum Glucose 88 mg/dL (74-106) Calcium Level 10.4 mg/dL (8.7-10.4) Troponin I High Sensitivity 4 ng/L (</=54) Triglycerides Level 216 mg/dL (< 150) Cholesterol Level 199 mg/dL (< 200) LDL Cholesterol 123 mg/dL (< 100) HDL Cholesterol 39 mg/dL (40-59) Thyroid Stimulating Hormone (TSH) 2.16 uIU/mL (0.55-4.78) Prothrombin Time 11.1 sec (9.3-11.8) Prothrombin Time INR 1.05 (0.9-1.15) Activated Partial Thromboplast Time 25.5 SEC (24.5-34.5) Magnesium Level 2.1 mg/dL (1.6-2.6) Total Bilirubin 0.6 mg/dL (0.2-1.0) Aspartate Amino Transferase (AST) 16 U/L (13-40) Alanine Aminotransferase (ALT) 32 U/L (7-40) Alkaline Phosphatase 63 U/L (46-116) B-Type Natriuretic Peptide 9.80 pg/mL (0-100) Total Protein 7.2 g/dL (5.7-8.2) Albumin 4.8 g/dL (3.2-4.8) Other Laboratory Tests 01/04/25 05:42 Brief Hx & Hospital Course: 49 yo M with HTN and heart failure? admitted for chest pain. Sharp left sided radiating to shoulders. Started while driving, non exersional. EKG showed LBBB, not sure if new. Currently not having chest pain. Uses vape, denies drug use, social alcohol use. Compliance with meds. Taken to [facility], found 50-60% LM stenosis. EF 40% by venticulogram. Discussed with cardio, for medical management and optimizaxtion of statin therapy. In this visit evaluated for DVT, which was negative. placed on NRT and ALLA improved. Stabl to discharge home. Condition at Discharge: Good Final Diagnosis/Problems List Stable angina CAD with LM stenosis HFrEF 40% LE swelling R>L, dvt ruled out chronic systolic heart failure Tobacco use Obesity Hypertension ALLA VMN resolved Discharge Disposition: Home Discharge Instruct/Medications Diet: Consistent carbohydrate, Cardiac 2g Na,low cholest Activity: No Restrictions, As Tolerated Follow Up/Referral: PCP cardio Medications: jardiance telmisartan asa lipitor 39 Discharge Statement: "Patient was advised to return to the ER or call 911 if any headaches, dizziness, shortness of breath, chest pain, abdominal pain, bleeding, fevers, or worsening of medical condition. Patient was counseled about treatment plan, medications, possible side effects, patientverbalized understanding. All questions were answered to the best of my ability. This discharge took greater then 30 minutes in planning, reviewing documentation, counseling the patient, and discussing with other team members." ASSESSMENT ASSESSMENT Assessment Stable angina CAD with LM stenosis LBBB HFrEF 40% LE swelling R>L, dvt ruled out chronic systolic heart failure Tobacco use Obesity Hypertension ALLA VMN resolved Date of Service: Jan 04, 2025 Billing Provider: VALERIA CANTU MD Common Visit Codes: [id number]/[id number] DISCH DAY >30min VALERIA CANTU MD Jan 04, 2025 12:17
[2025-01-04 13:00] VITALS: BP 123/78; PULSE 71; RESP 18; TEMP 98.1; O2SAT 96
== END 2025-01-04 15:04 | disposition home or self-care (01) | DRG 286 ==
LOC: EDBD 17:05 → ER 17:05 → OVERFLOW 19:13 → TELE-WESTW 01-03 15:30
PROVIDERS: ADMIT Student in an Organized Health Care Education/Training Program; ATTEND Student in an Organized Health Care Education/Training Program
PROC: 4A023N7 Measurement of Cardiac Sampling and Pressure, Left Heart, Percutaneous Approach (ICD-10-PCS; principal; 2025-01-03)
PROC: B2111ZZ Fluoroscopy of Multiple Coronary Arteries using Low Osmolar Contrast (ICD-10-PCS; 2025-01-03)
PROC: B2151ZZ Fluoroscopy of Left Heart using Low Osmolar Contrast (ICD-10-PCS; 2025-01-03)
PROC: 6A750ZZ Ultrasound Therapy, Circulatory, Single (ICD-10-PCS; 2025-01-03)
DX: I25.110 Atherosclerotic heart disease of native coronary artery with unstable angina pectoris (principal); N17.0 Acute kidney failure with tubular necrosis; I50.22 Chronic systolic (congestive) heart failure; I42.9 Cardiomyopathy, unspecified; I44.7 Left bundle-branch block, unspecified; E78.5 Hyperlipidemia, unspecified; F17.290 Nicotine dependence, other tobacco product, uncomplicated; E66.9 Obesity, unspecified; R73.03 Prediabetes; I11.0 Hypertensive heart disease with heart failure; G47.33 Obstructive sleep apnea (adult) (pediatric); Z79.82 Long term (current) use of aspirin; Z79.899 Other long term (current) drug therapy; Z79.1 Long term (current) use of non-steroidal anti-inflammatories (NSAID); Z82.3 Family history of stroke; Z68.38 Body mass index [BMI] 38.0-38.9, adult; Z79.891 Long term (current) use of opiate analgesic
CPT/HCPCS: 36415; 71045; 80048; 80053; 80061; 83735; 83880; 84443; 84484; 85025; 85610; 85730; 93005; 93306; 93971; 96374; 96375; 99152; G0378; J2250; J2405; Q9967